=== PATIENT | male | born 1945 | race Caucasian/White ===

== ENCOUNTER 2017-01-12 11:57 | Inpatient (IN) | payer OTHER, MEDICARE ==
[~2017-01-12] VITALS: Ht 177.8 cm; Wt 80.9 kg
[2017-01-12] VITALS (8 sets, daily range): BP systolic 153–198; BP diastolic 73–87; PULSE 77–100; RESP 18–22; TEMP 97.7–97.8; O2SAT 90–96
--- NOTE | 2017-01-12 13:09 | RADRPT ---
EXAM DATE/TIME: 01/12/2017 12:44 [facility] COMPARISON: No previous studies available for comparison. INDICATIONS : Shortness of breath. MEDICAL HISTORY : Hypertension. Chronic obstructive pulmonary disease. SURGICAL HISTORY : None. ENCOUNTER: Initial ACUITY: 3 days PAIN SCORE: 0/10 LOCATION: Bilateral chest FINDINGS: A single view of the chest demonstrates diffuse interstitial densities bibasilar patchy alveolar infi ltrates. Confluent density right lower lobe and measures 3.1 cm. The cardiomediastinal contours are u nremarkable. Osseous structures are intact. CONCLUSION: Diffuse interstitial densities and bibasilar patchy alveolar infiltrates. Confluent density right low er lobe measures 3.1 cm. Recommend medical treatment and followup to resolution is serial radiographs . Saravanan Menjivar MD on January 12, 2017 at 13:06 Board Certified Radiologist. This report was verified electronically.
--- NOTE | 2017-01-12 13:11 | PD ---
HPI Chief Complaint: Respiratory Symptoms Time Seen by Provider: 12:28 Travel History International Travel<30 days: No Contact w/Intl Traveler<30days: No Traveled to known affect area: No History of Present Illness HPI 71-year-old male complains of shortness of breath. Patient has history of COPD. Patient states that he has increasing shortness breath with dyspnea on exertion and chest pain or past 10 days. Patient states that the shortness breath social with exertion. Patient states that he has pressure across anterior chest wall with exertion. Patient denies any palpitation diaphoresis nausea vomiting. Patient states that he has occasional dry cough. Patient states that he had low-grade fever, 99, a few days ago but not since then. Patient states that he has history of IA after a surgery in 2003. Patient has history of dyslipidemia. Patient stopped smoking 5 years ago. Patient denies history hypertension or diabetes. Patient went to the [place] [facility] today and referred to ED for evaluation. O2 saturation was in the 80s and 90s at room air. PFSH Past Medical History Anemia: Yes Anxiety: Yes High Cholesterol: Yes Gastrointestinal Disorders: Yes (COLON POLYP) GERD: Yes Genitourinary: Yes (BPH) Hypertension: Yes Musculoskeletal: Yes (RHEUMATOID ARTHRITIS) Reproductive: Yes (ERECTILE DYSFUNCTION) Respiratory: Yes (COPD) Influenza Vaccination: Yes Past Surgical History Eye Surgery: Yes Tonsillectomy: Yes Social History Alcohol Use: Yes (GLASS OF WINE DAILY) Tobacco Use: No Substance Use: Yes (MARIJUANA) Allergies-Medications (Allergen,Severity, Reaction): Coded Allergies: Penicillin (Verified Allergy, Severe, Cramping, 01/12/17) Pravachol (Verified Allergy, Intermediate, Cramping, 01/12/17) Septra (Verified Allergy, Intermediate, Rash, 01/12/17) Sulfa (Verified Allergy, Intermediate, Rash, 01/12/17) Zocor (Verified Allergy, Intermediate, 01/12/17) Review of Systems General / Constitutional: No: Fever Eyes: No: Visual changes HENT: No: Headaches Cardiovascular: Positive: Chest Pain or Discomfort Respiratory: Positive: Shortness of Breath Gastrointestinal: No: Abdominal Pain Genitourinary: No: Dysuria Musculoskeletal: No: Pain Skin: No Rash Neurologic: No: Weakness Psychiatric: No: Depression Endocrine: No: Polydipsia Hematologic/Lymphatic: No: Easy Bruising Physical Exam Narrative GENERAL: Well-nourished, well-developed patient. SKIN: Warm and dry. HEAD: Normocephalic. EYES: No scleral icterus. No injection or drainage. NECK: Supple, trachea midline. No JVD or lymphadenopathy. CARDIOVASCULAR: Regular rate and rhythm without murmurs, gallops, or rubs. RESPIRATORY: Breath sounds equal bilaterally. No accessory muscle use. GASTROINTESTINAL: Abdomen soft, non-tender, nondistended. MUSCULOSKELETAL: No cyanosis, or edema. BACK: Nontender without obvious deformity. No CVA tenderness. Neurologic exam normal. Data Data Last Documented VS Vital Signs Date Time Temp Pulse Resp B/P Pulse Ox O2 Delivery O2 Flow Rate FiO2 01/12/17 13:38 95 Nasal Cannula 2.00 01/12/17 12:49 18 01/12/17 12:02 77 01/12/17 11:59 97.7 198/78 Orders Electrocardiogram (01/12/17 12:39) Complete Blood Count With Diff (01/12/17 12:39) Comprehensive Metabolic Panel (01/12/17 12:39) Creatine Kinase (Cpk) (01/12/17 12:39) Troponin I (01/12/17 12:39) B-Type Natriuretic Peptide (01/12/17 12:39) Prothrombin Time / Inr (Pt) (01/12/17 12:39) Act Partial Throm Time (Ptt) (01/12/17 12:39) Thyroid Stimulating Hormone (01/12/17 12:39) Chest, Single Ap (01/12/17 12:39) Iv Access Insert/Monitor (01/12/17 12:39) Ecg Monitoring (01/12/17 12:39) Oximetry (01/12/17 12:39) Sodium Chloride 0.9% Flush (Ns Flush) (01/12/17 13:15) Methylprednisolone So Succ Inj (Solumedr (01/12/17 13:15) Albuterol-Ipratropium Neb (Duoneb Neb) (01/12/17 13:15) Labs Laboratory Tests Test 01/12/17 13:30 White Blood Count 10.4 TH/MM3 Red Blood Count 3.24 MIL/MM3 Hemoglobin 10.8 GM/DL Hematocrit 30.8 % Mean Corpuscular Volume 95.0 FL Mean Corpuscular Hemoglobin 33.4 PG Mean Corpuscular Hemoglobin 35.1 % Concent Red Cell Distribution Width 15.4 % Platelet Count 389 TH/MM3 Mean Platelet Volume 8.0 FL Neutrophils (%) (Auto) 71.1 % Lymphocytes (%) (Auto) 9.3 % Monocytes (%) (Auto) 12.7 % Eosinophils (%) (Auto) 6.4 % Basophils (%) (Auto) 0.5 % Neutrophils # (Auto) 7.4 TH/MM3 Lymphocytes # (Auto) 1.0 TH/MM3 Monocytes # (Auto) 1.3 TH/MM3 Eosinophils # (Auto) 0.7 TH/MM3 Basophils # (Auto) 0.1 TH/MM3 CBC Comment DIFF FINAL Differential Comment Prothrombin Time 11.2 SEC Prothromb Time International 1.0 RATIO Ratio Activated Partial 26.3 SEC Thromboplast Time Sodium Level 133 MEQ/L Potassium Level 4.2 MEQ/L Chloride Level 99 MEQ/L Carbon Dioxide Level 25.5 MEQ/L Anion Gap 9 MEQ/L Blood Urea Nitrogen 15 MG/DL Creatinine 1.11 MG/DL Estimat Glomerular Filtration 65 ML/MIN Rate Random Glucose 101 MG/DL Calcium Level 8.9 MG/DL Total Bilirubin 0.5 MG/DL Aspartate Amino Transf 23 U/L (AST/SGOT) Alanine Aminotransferase 27 U/L (ALT/SGPT) Alkaline Phosphatase 76 U/L Total Creatine Kinase 77 U/L Troponin I LESS THAN 0.02 NG/ML B-Type Natriuretic Peptide 18 PG/ML Total Protein 6.9 GM/DL Albumin 3.2 GM/DL Thyroid Stimulating Hormone 3.070 uIU/ML 3rd [facility] Medical Decision Making Medical Screen Exam Complete: Yes Emergency Medical Condition: Yes Interpretation(s) Last Impressions Chest X-Ray 01/12/17 1239 Signed Impressions: Service Date/Time: Thursday, January 12, 2017 12:44 - CONCLUSION: Diffuse interstitial densities and bibasilar patchy alveolar infiltrates. Confluent density right lower lobe measures 3.1 cm. Recommend medical treatment and followup to resolution is serial radiographs. Saravanan Menjivar MD 1548 PM. CBC WBC 10.4. Hemoglobin 10.8 hematocrit 30.8. 71 neutrophil. Sodium 133. BNP 18. Cardiac enzymes are normal. Differential Diagnosis Differential diagnosis including acute exacerbation COPD, bronchitis, pneumonia , PE, pneumothorax, angina, IA. Narrative Course 71-year-old male with chest discomfort and shortness of breath on exertion. History of COPD. Albuterol with Atrovent unit dose treatment times one. Solu- Medrol 125 mg IV. Levaquin 750 mg IV. Zithromax 500 mg IV. Diagnosis Primary Impression: Pneumonia Qualified Code: J18.9 - Pneumonia of both lower lobes due to infectious organism Additional Impression: COPD with acute exacerbation Erick Parks MD Jan 12, 2017 13:11
[2017-01-12] MEDS ORDERED: methylPREDNISolone SOD SUCC 125 MG/2 ML VIAL IVP ONE (13:15)
[2017-01-12] MEDS ORDERED: RESP: ALBUTEROL 2.5 MG/IPRATROPIUM 0.5 MG NEB (SCH) INH ONE (13:15)
[2017-01-12] MEDS ORDERED: SODIUM CHLORIDE 0.9% FLUSH 5 ML FLUSH IVF PRN (13:15)
[2017-01-12 13:56] LABS: AUTOMATED NEUTROPHIL # 7.4 TH/MM3 (1.8-7.7); BASOPHIL # 0.1 TH/MM3 (0-0.2); BASOPHIL % 0.5 % (0.0-2.0); EOSINOPHIL # 0.7 TH/MM3 (0-0.4); EOSINOPHIL % 6.4 % (0.0-4.0); HEMATOCRIT 30.8 % (39.0-51.0); HEMO FLAGS DIFF FINAL; LYMPH % 9.3 % (9.0-44.0); MEAN CORPUSCULAR HEMOGLOBIN 33.4 PG (27.0-34.0); MEAN CORPUSCULAR HGB CONC 35.1 % (32.0-36.0); MONO % 12.7 % (0.0-8.0); NEUT % 71.1 % (16.0-70.0); PLATELET COUNT 389 TH/MM3 (150-450); RED BLOOD COUNT 3.24 MIL/MM3 (4.50-5.90); RED CELL DISTRIBUTION WIDTH 15.4 % (11.6-17.2); WHITE BLOOD COUNT 10.4 TH/MM3 (4.0-11.0)
[2017-01-12 14:06] LABS: APTT (PATIENT) 26.3 SEC (24.3-30.1); PROTHROMBIN TIME - PATIENT 11.2 SEC (9.8-11.6)
[2017-01-12 14:11] LABS: ALT (GPT) 27 U/L (12-78); ANION GAP 9 MEQ/L (5-15); AST (GOT) 23 U/L (15-37); BICARBONATE 25.5 MEQ/L (21.0-32.0); BLOOD UREA NITROGEN 15 MG/DL (7-18); CHLORIDE 99 MEQ/L (98-107); GLOMERULAR FILTRATION RATE 65 ML/MIN (>89); POTASSIUM 4.2 MEQ/L (3.5-5.1); SODIUM (NA) 133 MEQ/L (136-145)
[2017-01-12 14:21] LABS: ALKALINE PHOSPHATASE 76 U/L (45-117); TOTAL BILIRUBIN ADULT 0.5 MG/DL (0.2-1.0)
[2017-01-12 14:23] LABS: CREATINE KINASE 77 U/L (39-308)
[2017-01-12] MEDS ORDERED: OMEP20TA PO (15:57)
[2017-01-12] MEDS ORDERED: VITA400T2 PO (15:57)
[2017-01-12] MEDS ORDERED: POLY99.0 EACH EYE (15:57)
[2017-01-12] MEDS ORDERED: ENBR25IN2 SQ (15:57)
[2017-01-12] MEDS ORDERED: [UNRECOGNIZED DRUG - CODE] TOP (15:57)
[2017-01-12] MEDS ORDERED: FOLI5CAP PO (15:57)
[2017-01-12] MEDS ORDERED: TERA2CAP3 PO (15:57)
[2017-01-12] MEDS ORDERED: ZOLP10TA3 PO (15:57)
[2017-01-12] MEDS ORDERED: VENTAER INH (15:57)
[2017-01-12] MEDS ORDERED: LISI-515 PO (15:57)
[2017-01-12] MEDS ORDERED: ASMA220A INH (15:57)
[2017-01-12] MEDS ORDERED: BUPR100T PO (15:57)
[2017-01-12] MEDS ORDERED: METH2.5T PO (15:57)
[2017-01-12] MEDS ORDERED: ATOR40TA16 PO (15:57)
[2017-01-12] MEDS ORDERED: MULT-135 PO (15:57)
[2017-01-12] MEDS ORDERED: CALC600T25 PO (15:57)
[2017-01-12] MEDS ORDERED: LEVOFLOXACIN 750 MG PREMIX INJ 150 ML IV ONE (16:00)
[2017-01-12] MEDS ORDERED: AZITHROMYCIN INJ 500 MG in SODIUM CHLOR 0.9% 250 ML INJ 250 ML IV ONE (16:00)
--- NOTE | 2017-01-12 17:01 | HHI.HP ---
[facility] Service Family Medicine Primary Care Physician [facility] Admission Diagnosis pneumonia. Acute exacerbation COPD. Diagnoses: International Travel<30 Days: No Contact w/Intl Traveler<30days: No Known Affected Area: No History of Present Illness Mr. Weber is a 71-year-old male with a past medical history of hypertension, COPD, rheumatoid arthritis, depression, achalasia, and BPH presents to the [place] ED with a chief complaint of shortness of breath of 5-10 days duration. The patient states that he is winded at baseline from exertion and activities such as making the bed, but the shortness of breath became worse such that he was short of breath if he moved a quilt, or bent over or carried items. The shortness of breath was also worse when he lies down flat. Notably, he uses 3 pillows to sleep at home and he sleeps with the head of his bed raised. He does not use oxygen at home. The shortness of breath became so bad today that he went to the [place] outpatient [facility] where he was found to be hypoxic in the 70s. He was consequently transferred to [place]. Associated symptoms include nonproductive cough, and an "electric pain"in the middle of his chest that radiates down each arm bilaterally to his wrists. He denies pressure-like or sharp chest pain. He also denies abdominal pain, nausea , vomiting, or constipation. He did mention that recently, his stool has appeared like firm bullets but are easy to pass. (Norma Leyva MD R1) Review of Systems Constitutional: COMPLAINS OF: Fever (subjective warmness), Dizziness (when coughing), DENIES: Diaphoretic episodes, Chills, Night Sweats Ears, nose, mouth, throat: COMPLAINS OF: Nasal discharge (sinus issues ) Respiratory: COMPLAINS OF: Cough, Shortness of breath, DENIES: Sputum production Cardiovascular: DENIES: Chest pain, Lower Extremity Edema Gastrointestinal: DENIES: Abdominal pain, Diarrhea, Nausea Genitourinary: COMPLAINS OF: Dysuria (saw the urologist this morning, PSA of 10 ) Integumentary: DENIES: Rash Neurologic: COMPLAINS OF: Headache (sinus headache) (Norma Leyva MD R1) Past Family Social History Past Medical History Rheumatoid arthritis diagnosed in 2004 Hypertension COPD Depression BPH Achalasia Past Surgical History Bowel surgery Tonsillectomy at 8 years of age Hemorrhoid banding (Norma Leyva MD R1) Allergies: Coded Allergies: Penicillin (Verified Allergy, Severe, Cramping, 01/12/17) Pravachol (Verified Allergy, Intermediate, Cramping, 01/12/17) Septra (Verified Allergy, Intermediate, Rash, 01/12/17) Sulfa (Verified Allergy, Intermediate, Rash, 01/12/17) Zocor (Verified Allergy, Intermediate, 01/12/17) Family History CAD - mom and dad - suddenly at 65, mom of CHF at age 90 Achalasia - dad COPD - mom DM - none Cancer - none Social History Lives alone with his cat Dawson Coffman - neighbor and dear friend who is his healthcare surrogate Smoking - smoked 1.5 to 2 ppd for 53 years Still uses E-cigarettes Alcohol - drinks red wine at night 2-3 glasses with dinner - never withdrawn Marijuana - smokes daily (Norma Leyav MD R1) Physical Exam Vital Signs Vital Signs Date Time Temp Pulse Resp B/P Pulse Ox O2 Delivery O2 Flow Rate FiO2 01/12/17 13:38 95 Nasal Cannula 2.00 01/12/17 12:49 18 96 Nasal Cannula 2 01/12/17 12:02 77 18 96 Nasal Cannula 2 01/12/17 11:59 97.7 77 18 198/78 90 Physical Exam GENERAL: This is a well-nourished, well-developed patient, in no apparent distress. SKIN: No rashes, ecchymoses or lesions. Cool and dry. HEAD: Atraumatic. Normocephalic. No temporal or scalp tenderness. EYES: Pupils equal round and reactive. Extraocular motions intact. No scleral icterus. No injection or drainage. ENT: Nose without bleeding, purulent drainage or septal hematoma. Throat without erythema, tonsillar hypertrophy or exudate. Uvula midline. Airway patent. NECK: Trachea midline. No JVD or lymphadenopathy. Supple, nontender, no meningeal signs. CARDIOVASCULAR: Regular rate and rhythm without murmurs, gallops, or rubs. RESPIRATORY: Bilateral chest. Coarse breath sounds in bibasilar lung shepherd GASTROINTESTINAL: Abdomen soft, non-tender, nondistended. No hepato-splenomegaly , or palpable masses. No guarding. NEUROLOGICAL: Awake and alert. Cranial nerves II through XII intact. Motor and sensory grossly within normal limits. Five out of 5 muscle strength in all muscle groups. Normal speech. Laboratory Laboratory Tests Test 01/12/17 13:30 White Blood Count 10.4 Red Blood Count 3.24 Hemoglobin 10.8 Hematocrit 30.8 Mean Corpuscular Volume 95.0 Mean Corpuscular Hemoglobin 33.4 Mean Corpuscular Hemoglobin 35.1 Concent Red Cell Distribution Width 15.4 Platelet Count 389 Mean Platelet Volume 8.0 Neutrophils (%) (Auto) 71.1 Lymphocytes (%) (Auto) 9.3 Monocytes (%) (Auto) 12.7 Eosinophils (%) (Auto) 6.4 Basophils (%) (Auto) 0.5 Neutrophils # (Auto) 7.4 Lymphocytes # (Auto) 1.0 Monocytes # (Auto) 1.3 Eosinophils # (Auto) 0.7 Basophils # (Auto) 0.1 CBC Comment DIFF FINAL Differential Comment Prothrombin Time 11.2 Prothromb Time International 1.0 Ratio Activated Partial 26.3 Thromboplast Time Sodium Level 133 Potassium Level 4.2 Chloride Level 99 Carbon Dioxide Level 25.5 Anion Gap 9 Blood Urea Nitrogen 15 Creatinine 1.11 Estimat Glomerular Filtration 65 Rate Random Glucose 101 Calcium Level 8.9 Total Bilirubin 0.5 Aspartate Amino Transf 23 (AST/SGOT) Alanine Aminotransferase 27 (ALT/SGPT) Alkaline Phosphatase 76 Total Creatine Kinase 77 Troponin I LESS THAN 0.02 B-Type Natriuretic Peptide 18 Total Protein 6.9 Albumin 3.2 Thyroid Stimulating Hormone 3.070 3rd Gen (Norma Leyva MD R1) Result Diagram: 01/12/17 1330 01/12/17 1330 Imaging Last Impressions Chest X-Ray 01/12/17 1239 Signed Impressions: Service Date/Time: Thursday, January 12, 2017 12:44 - CONCLUSION: Diffuse interstitial densities and bibasilar patchy alveolar infiltrates. Confluent density right lower lobe measures 3.1 cm. Recommend medical treatment and followup to resolution is serial radiographs. Saravanan Menjivar MD Course Patient received one dose of Levaquin IV, azithromycin IV, and IV Solu-Medrol in the ED. A CXR and EKG were performed. (Norma Leyva MD R1) Assessment and Plan Assessment and Plan 71-year-old male with a past medical history of COPD presents with shortness of breath of 5-10 days' duration that is concerning for either pneumonia, COPD exacerbation, CHF, and ACS. Chest x-ray performed in the ED shows interstitial densities on by basilar patchy alveolar infiltrates with a confluent density in the right lower lobe, placing pneumonia at the top of the differential diagnosis. The patient will be admitted for treatment with anti-biotics, breathing treatments, and oxygen administration. Code Status Full code Discussed Condition With Seen and discussed with Dr. Narayan, PGY 2. Will discuss with Dr. Ramos (Norma Leyva MD R1) Attending Attestation The patient has been seen and examined. The chart and all resident notes have been reviewed. I agree that inpatient care is appropriate and that a two midnight stay is expected for the reasons documented in the resident history and physical. I have discussed this with the resident and certify the resident s order for inpatient admission. (Fatuma Ramos MD) Problem List: (1) Pneumonia Status: Acute Plan: -ACS rule out with troponin less than 0.02 and normal EKG - pneumonia more likely diagnosis -Chest x-ray shows diffuse interstitial densities in bibasilar patchy alveolar infiltrates. There is also a confluent density in the right lower lobe that measures 3.1 cm -Levaquin 750 mg [IV] every 24 hours, received [1] doses - DAY [1], started on 01/12/17 -Azithromycin 500 mg by mouth every 24 hours to start on 01/13, received one dose of azithromycin 500 mg IV today 01/12 - Day [1] -Patient received 125 mg IV push methylprednisolone in the ED -We will continue prednisone 40 mg by mouth daily on 01/13 -Legionella and pneumococcal antigen pending (2) COPD with acute exacerbation Status: Acute Plan: -Patient reports about [id number] history of smoking -Considering patient's shortness of breath, COPD exacerbation is also high on the differential -Albuterol nebulizer 2.5 mg every 4 hours scheduled for shortness of breath to alternate with DuoNebs 1 ampule every 4 hours -See plan above for antibiotics (3) Rheumatoid arthritis Status: Chronic Plan: -Patient normally takes methotrexate every 7 days on Tuesdays -Did not take his dose today -Also takes Enbrel injection every 7 days on Sundays, last dose was on Wednesday -Holding for now (4) Anemia Status: Chronic Plan: -H&H on admission 10.8/30.8 -Will continue to monitor during admission (5) Hypertension Status: Chronic Plan: -BP elevated to 198/78 on admission -We'll continue home lisinopril 20 mg daily by mouth -Vasotec 1.25 mg IV every 6 hours when necessary (6) BPH (benign prostatic hyperplasia) Status: Chronic Plan: -Will continue patient's home Terazosin 2mg by mouth at bedtime (7) Depression Status: Chronic Plan: -Continue home Bupropion 100 mg by mouth twice a day (8) Insomnia Status: Chronic Plan: -Continue home zolpidem 10 mg by mouth at bedtime PRN (9) FEN/DVT PPX/GI PPX Status: Acute Plan: Fluids: Oral fluids only; patient does not meet sepsis criteria, is not dehydrated on exam, has been eating and drinking normally Electrolytes: Will monitor and replace as needed Nutrition: Regular adult diet DVT Prophylaxis: Bilateral SCDs GI Prophylaxis: Protonix 40 mg by mouth daily AM Labs: CBC, CMP in the a.m. (Norma Leyva MD R1) Physician Certification 2 Midnight Certification Type: Admission for Inpatient Services Order for Inpatient Services The services are ordered in accordance with Medicare regulations or non- Medicare payer requirements, as applicable. In the case of services not specified as inpatient-only, they are appropriately provided as inpatient services in accordance with the 2-midnight benchmark. Estimated LOS (days): 3 days is the estimated time the patient will need to remain in the hospital, assuming treatment plan goals are met and no additional complications. Post-Hospital Plan: Home (Norma Leyva MD R1) Problem Qualifiers (1) Pneumonia: Qualified Code: J18.9 - Pneumonia of both lower lobes due to infectious organism (2) Anemia: Qualified Code: D64.9 - Anemia, unspecified type Norma Leyva MD R1 Jan 12, 2017 17:01 Fatuma Ramos MD Jan 13, 2017 15:26
[2017-01-12 17:52] LABS: BLOOD, URINE NEG (NEG); COMMENT (UR) CULT NOT INDICATED; CULTURE IF INDICATED CULT NOT INDICATED; GLUCOSE,URINE NEG (NEG); KETONE, URINE NEG (NEG); NITRITE,URINE NEG (NEG); URINE COLOR YELLOW (YELLW/STRAW)
[2017-01-12] MEDS ORDERED: ENALAPRILAT 1.25 MG/ML VIAL IV PRN (18:00)
[2017-01-12 18:23] LABS: BLOOD GAS BASE EXCESS -1.3 mmol/L (-2-2); BLOOD GAS CARBOXYHEMOGLOBIN 2.4 % (0-4); BLOOD GAS HCO3 22 mmol/L (22-26); BLOOD GAS METHEMOGLOBIN 1.8 % (0-2); BLOOD GAS O2 HGB SATURATION 90 % (90-100); BLOOD GAS OXYGEN CONTENT 14.4 Vol % (12.0-20.0); BLOOD GAS PCO2 30 mmHg (38-42); BLOOD GAS PO2 66 mmHG (61-120); BLOOD GAS TOTAL HGB 11.3 G/DL (12.0-16.0); CRITICAL VALUE NO; DRAW SITE LT BRACHIAL; LITER FLOW 3 L/M; NUMBER OF ARTERIAL PUNCTURES 1; OXYGEN DEVICE NASAL CANNULA; STAT YES; TEMP CORR TO 98.6; ULNAR PULSE Y
[2017-01-12] MEDS: RESP: ALBUTEROL 2.5 MG/3 ML NEB (SCH) INH (19:11)
[2017-01-12] MEDS: HEPARIN SODIUM - SQ 10,000 UNITS/ML VIAL SQ SCH (21:00)
[2017-01-12] MEDS ORDERED: buPROPion HCL 100 MG SUSTAINED RELEASE TAB PO SCH (21:00)
[2017-01-12] MEDS: TERAZOSIN HCL 1 MG CAP PO SCH (22:09)
[2017-01-12] MEDS: CHOLECALCIFEROL (VIT D3) 400 UNIT TAB PO SCH (22:09)
[2017-01-12] MEDS: ATORVASTATIN 40 MG TAB PO SCH (22:09)
[2017-01-12] MEDS: CALCIUM CARBONATE 1.25 GM (CA 500 MG) TAB PO SCH (22:09)
[2017-01-12] MEDS: ZOLPIDEM TARTRATE 10 MG TAB PO PRN (22:29)
[2017-01-12] MEDS: RESP: ALBUTEROL 2.5 MG/IPRATROPIUM 0.5 MG NEB (SCH) NEB (23:48)
[2017-01-13] VITALS (10 sets, daily range): BP systolic 111–154; BP diastolic 64–78; PULSE 74–101; RESP 18–22; TEMP 97.5–98.8; O2SAT 92–96
[2017-01-13] MEDS: RESP: ALBUTEROL 2.5 MG/3 ML NEB (SCH) INH ×2 (03:19→11:19)
[2017-01-13] MEDS: RESP: ALBUTEROL 2.5 MG/IPRATROPIUM 0.5 MG NEB (SCH) NEB (07:32)
[2017-01-13 08:13] LABS: AUTOMATED NEUTROPHIL # 8.1 TH/MM3 (1.8-7.7); BASOPHIL % 0.2 % (0.0-2.0); EOSINOPHIL % 0.4 % (0.0-4.0); HEMATOCRIT 29.4 % (39.0-51.0); HEMO FLAGS DIFF FINAL; LYMPH % 10.8 % (9.0-44.0); LYMPHOCYTE # 1.2 TH/MM3 (1.0-4.8); MEAN CELL VOLUME 93.3 FL (80.0-100.0); MEAN CORPUSCULAR HEMOGLOBIN 31.7 PG (27.0-34.0); MONO % 12.5 % (0.0-8.0); NEUT % 76.1 % (16.0-70.0); PLATELET COUNT 363 TH/MM3 (150-450); RED BLOOD COUNT 3.16 MIL/MM3 (4.50-5.90); RED CELL DISTRIBUTION WIDTH 15.1 % (11.6-17.2); WHITE BLOOD COUNT 10.7 TH/MM3 (4.0-11.0)
[2017-01-13 08:35] LABS: BICARBONATE 22.9 MEQ/L (21.0-32.0); MAGNESIUM 1.8 MG/DL (1.5-2.5); POTASSIUM 4.1 MEQ/L (3.5-5.1)
[2017-01-13] MEDS: buPROPion HCL 100 MG SUSTAINED RELEASE TAB PO SCH ×2 (08:58→21:18)
[2017-01-13] MEDS: FOLIC ACID 1 MG TAB PO SCH (08:58)
[2017-01-13] MEDS: predniSONE 20 MG TAB PO SCH (08:59)
[2017-01-13] MEDS: LISINOPRIL 20 MG TAB PO SCH (08:59)
[2017-01-13] MEDS: CHOLECALCIFEROL (VIT D3) 400 UNIT TAB PO SCH ×2 (08:59→21:18)
[2017-01-13] MEDS: NICOTINE 21 MG/24 HR PATCH TD SCH (08:59)
[2017-01-13] MEDS: CALCIUM CARBONATE 1.25 GM (CA 500 MG) TAB PO SCH ×2 (08:59→21:21)
[2017-01-13] MEDS ORDERED: SYRINGE/BAG 1 EA PO SCH (09:00)
[2017-01-13] MEDS: HEPARIN SODIUM - SQ 10,000 UNITS/ML VIAL SQ SCH (09:00)
[2017-01-13] MEDS: REMOVE OLD PATCH TD SCH (09:00)
[2017-01-13] MEDS ORDERED: AZITHROMYCIN 250 MG TAB PO SCH (09:00)
[2017-01-13] MEDS ORDERED: METHOTREXATE 2.5 MG TAB PO SCH (10:00)
[2017-01-13] MEDS ORDERED: IOHEXOL 350 MG/ML 10 ML VIAL (for RAD DIAG) IV ONE (10:11)
--- NOTE | 2017-01-13 10:40 | RADRPT ---
EXAM DATE/TIME: 01/13/2017 10:09 [facility] COMPARISON: No previous studies available for comparison. INDICATIONS: Short of breath. Abnormal chest x-ray. Evaluate for mass. IV CONTRAST: 65 cc Omnipaque 350 (iohexol) IV RADIATION DOSE: 5.61 CTDIvol (mGy) MEDICAL HISTORY: Hypertension. Chronic obstructive pulmonary disease. Gastroesophageal reflux disease. SURGICAL HISTORY: None. ENCOUNTER: Initial ACUITY: 1 week PAIN SCALE: 0/10 LOCATION: Right chest TECHNIQUE: Volumetric scanning of the chest was performed. Using automated exposure control and adjustment of t he mA and/or kV according to patient size, radiation dose was kept as low as reasonably achievable to obtain optimal diagnostic quality images. FINDINGS: Extensive emphysematous changes are seen in both lungs. In the right base there is a poorly circumsc ribed 4 cm mass with a central cavitation that is suspicious for primary neoplasm. This would be amenable to per cutaneous biopsy. Pneumothorax is moderate in this patient with significant emphysematous changes. There is no pleural effusion. There is no axillary adenopathy. There is abnormal mediastinal adenop athy with pre-carinal lymph nodes present measuring 1.4 cm. The largest node measures 2.1 cm. There is hilar adenopathy on the right as well. Review of bone windows reveals only degenerative changes. CONCLUSION: 1. Extensive emphysematous changes with a mass in the right lower lobe. 2. Abnormal hilar adenopathy. 3. Abnormal mediastinal adenopathy. Elder Isaacs MD FACR on January 13, 2017 at 10:17 Board Certified Radiologist. This report was verified electronically.
[2017-01-13] MEDS ORDERED: RESP: ALBUTEROL 2.5 MG/IPRATROPIUM 0.5 MG NEB (PRN) NEB (12:00)
--- NOTE | 2017-01-13 14:16 | HHI.FPPN ---
Subjective Remarks No acute events overnight. Afebrile, vital signs stable. Patient continues to require 3 L nasal cannula. He states he feels his breathing is much improved from yesterday. (Charito Aquino MD R3) Objective Vitals Vital Signs Date Time Temp Pulse Resp B/P Pulse Ox O2 Delivery O2 Flow Rate FiO2 01/13/17 12:07 98.1 96 22 132/70 93 01/13/17 08:05 98.2 87 22 154/78 92 01/13/17 07:34 93 Nasal Cannula 3.00 01/13/17 04:00 97.5 93 18 120/70 93 01/13/17 00:00 98.2 101 20 111/64 93 01/12/17 20:46 Nasal Cannula 3.00 01/12/17 20:28 100 01/12/17 20:00 97.8 100 20 153/73 94 01/12/17 19:37 96 22 160/81 95 Nasal Cannula 3 01/12/17 19:12 96 Nasal Cannula 3.00 I/O 01/12/17 01/12/17 01/12/17 01/13/17 01/13/17 01/13/17 07:00 15:00 23:00 07:00 15:00 23:00 Intake Total 240 ml 240 ml Balance 240 ml 240 ml Intake Oral 240 ml 240 ml # Voids 2 2 # Bowel Movements 1 1 (Charito Aquino MD R3) Result Diagram: 01/13/17 0744 01/13/17 0744 Imaging Last Impressions Chest X-Ray 01/12/17 1239 Signed Impressions: Service Date/Time: Thursday, January 12, 2017 12:44 - CONCLUSION: Diffuse interstitial densities and bibasilar patchy alveolar infiltrates. Confluent density right lower lobe measures 3.1 cm. Recommend medical treatment and followup to resolution is serial radiographs. Saravanan Menjivar MD Objective Remarks Gen.: No acute distress Head: Normocephalic. Atraumatic. EENT: Pupils equal round and reactive to light. Nose without drainage. Airway intact. Throat without injection. Cardiovascular: Regular rate and rhythm. No murmurs, rubs or gallops. Respiratory: Coarse breath sounds bilaterally. No wheezes or rhonchi. Abdomen: Soft, nontender, nondistended. No peritoneal signs. Musculoskeletal: No gross deformities. No edema. Skin: No obvious rashes or erythema. Neuro: Sensory and motor grossly intact. Cranial nerves II through XII grossly intact. Psych: Appropriate mood and affect (Charito Aquino MD R3) A/P Assessment and Plan 71-year-old male with a past medical history of COPD presents with 510 days shortness of breath and basilar patchy alveolar infiltrates on chest x-ray. Discharge Planning Pending clinical improvement (Charito Aquino MD R3) Attending Attestation Patient seen and examined with the resident team. Case reviewed and discussed Agree with plan of care as discussed with me and documented in the resident note. (Fatuma Ramos MD) Problem List: (1) Pneumonia Status: Acute Plan: Chest x-ray shows diffuse interstitial densities and bibasilar patchy alveolar infiltrates. Legionella and strep pneumo antigens negative. Flu negative. Blood cultures no growth 1 day. Levaquin 750 mg every 24 hours started on 01/12/17 (2) COPD with acute exacerbation Status: Acute Plan: Patient with known COPD and a [id number] history of smoking. Patient given 125 mg Solu-Medrol in the ED. Continue prednisone 40 mg by mouth daily Albuterol and DuoNeb's (3) Rheumatoid arthritis Status: Chronic Plan: Patient on methotrexate (every Wednesday) and Enbrel (every Wednesday). Continue home medications (4) Anemia Status: Chronic Plan: H&H on admission 10.8/30.8 -Will continue to monitor (5) Hypertension Status: Chronic Plan: BP elevated to 198/78 on admission -Continue home lisinopril 20 mg daily by mouth -Vasotec 1.25 mg IV every 6 hours when necessary (6) BPH (benign prostatic hyperplasia) Status: Chronic Plan: -Will continue patient's home Terazosin 2mg by mouth at bedtime (7) Depression Status: Chronic Plan: -Continue home Bupropion 100 mg by mouth twice a day (8) Insomnia Status: Chronic Plan: -Continue home zolpidem 10 mg by mouth at bedtime PRN (9) FEN/DVT PPX/GI PPX Status: Acute Plan: Fluids: Hep-Lock IV Electrolytes: Will monitor and replace as needed Nutrition: Regular adult diet DVT Prophylaxis: Bilateral SCDs, heparin 5000 units every 8 hours GI Prophylaxis: Protonix 40 mg by mouth daily (Charito Aquino MD R3) Problem Qualifiers (1) Pneumonia: Qualified Code: J18.9 - Pneumonia of both lower lobes due to infectious organism (2) Anemia: Qualified Code: D64.9 - Anemia, unspecified type Charito Aquino MD R3 Jan 13, 2017 14:16 Fatuma Ramos MD Jan 13, 2017 15:28
--- NOTE | 2017-01-13 15:28 | HHI.FPPN ---
Subjective Subjective Patient seen and examined with the resident team. Case reviewed with the resident team Please refer to resident H&P for further details regarding HPI, ROS, PMH, SurgHx , FH and SocHx In summary, patient is a 71yoM who presented [place] the ED from the [place] [facility] with oxygen noted to be in the 70s. He reports a 5-10 day history of worsening shortness of breath with intermittent 'electric' chest pain. He is seen this am reporting improvement, chest pain resolved. [facility] Objective Objective Laboratory Tests - Abnormals Test 01/12/17 01/13/17 18:10 07:44 Arterial Blood pH 7.47 Arterial Blood Partial 30 mmHg Pressure CO2 Blood Gas Hemoglobin 11.3 G/DL Red Blood Count 3.16 MIL/MM3 Hemoglobin 10.0 GM/DL Hematocrit 29.4 % Neutrophils (%) (Auto) 76.1 % Monocytes (%) (Auto) 12.5 % Neutrophils # (Auto) 8.1 TH/MM3 Monocytes # (Auto) 1.3 TH/MM3 Sodium Level 133 MEQ/L Estimat Glomerular Filtration 68 ML/MIN Rate Vital Signs 01/12/17 01/12/17 01/12/17 01/12/17 19:12 19:37 20:00 20:28 Temp 97.8 Pulse 96 100 100 Resp 20 B/P 160/81 153/73 Pulse Ox 96 95 94 O2 Delivery Nasal Cannula Nasal Cannula O2 Flow Rate 3.00 3 01/12/17 01/13/17 01/13/17 01/13/17 20:46 00:00 04:00 07:34 Temp 98.2 97.5 Pulse 101 93 Resp 20 18 B/P 111/64 120/70 Pulse Ox 93 93 93 O2 Delivery Nasal Cannula Nasal Cannula O2 Flow Rate 3.00 3.00 01/13/17 01/13/17 08:05 12:07 Temp 98.2 98.1 Pulse 87 96 Resp B/P 154/78 132/70 Pulse Ox 92 93 INTAKE & OUTPUT 01/13/17 07:00 Intake Total 480 ml Balance 480 ml Physical exam GENERAL: Elderly male, NAD, resting in bed SKIN: Warm and dry. No lesions, rashes HEAD: Normocephalic. AT EYES: No scleral icterus. No injection or drainage. ENT: OP clear. NC in place. NECK: Supple, trachea midline. No JVD or lymphadenopathy. CARDIOVASCULAR: Regular rate and rhythm without murmurs, gallops, or rubs. RESPIRATORY: Breath sounds with mild R basilar crackles. No accessory muscle use. GASTROINTESTINAL: Abdomen soft, non-tender, nondistended. MUSCULOSKELETAL: No cyanosis, or edema. NO calf tenderness BACK: Nontender without obvious deformity. No CVA tenderness. NEURO: Awake and alert. Normal speech. CN grossly intact. Assessment Assessment 71yoM admitted with: CAP COPD in acute exacerbation Rheumatoid arthritis diagnosed in 2004 Hypertension Depression BPH PLAN PLAN CT Chest to evaluate 3cm lesion noted on CXR Empiric antibiotic therapy with Levaquin Prednisone Supplemental oxygen as needed Breathing treatments Counseled regarding tobacco cessation Resume home meds as appropriate Legionella, strep, flu antigen Sputum culture Patient seen and examined with the resident team. Case reviewed and discussed Agree with plan of care as discussed with me and documented in the resident note. Fatuma Ramos MD Jan 13, 2017 15:28
[2017-01-13] MEDS: LEVOFLOXACIN 750 MG PREMIX INJ 150 ML IV SCH (16:52)
[2017-01-13] MEDS: TERAZOSIN HCL 1 MG CAP PO SCH (21:18)
[2017-01-13] MEDS: ATORVASTATIN 40 MG TAB PO SCH (21:18)
--- NOTE | 2017-01-13 21:26 | HHI.FPPN ---
Addendum to progress note ADDENDUM Reason for addendum: Additonal documentation Additional information I met with the patient earlier in the day to inform him about the results of the CT scan of his chest which is concerning for primary lung cancer. The radiologist recommended percutaneous biopsy of the cavitary mass, which the patient declined. The patient states that he does not want to go ahead with any plans without first discussing with his primary physician Dr. French at the [place]. I informed him that we have consulted oncology who should see him tomorrow. We will be happy to discuss the radiology findings with his primary care physician tomorrow. (Norma Leyva MD R1) Norma Leyva MD R1 Jan 13, 2017 21:26 Fatuma Ramos MD Jan 13, 2017 21:41
--- NOTE | 2017-01-13 22:31 | EKG ---
Date Performed: 01/12/2017 Time Performed: 13:56:03 PTAGE: 71 years EKG: Sinus rhythm NORMAL ECG NO PREVIOUS TRACING DOCTOR: Hali Rod Interpretating Date/Time 01/13/2017 22:29:31
[2017-01-13] MEDS: ZOLPIDEM TARTRATE 10 MG TAB PO PRN (22:51)
[2017-01-14] VITALS (12 sets, daily range): BP systolic 121–149; BP diastolic 58–87; PULSE 72–90; RESP 16–22; TEMP 98–98.7; O2SAT 91–96
[2017-01-14 08:27] LABS: AUTOMATED NEUTROPHIL # 8.5 TH/MM3 (1.8-7.7); BASOPHIL % 0.3 % (0.0-2.0); EOSINOPHIL # 0.3 TH/MM3 (0-0.4); EOSINOPHIL % 2.8 % (0.0-4.0); HEMATOCRIT 29.9 % (39.0-51.0); HEMO FLAGS DIFF FINAL; LYMPH % 11.2 % (9.0-44.0); LYMPHOCYTE # 1.3 TH/MM3 (1.0-4.8); MEAN CELL VOLUME 94.2 FL (80.0-100.0); MEAN CORPUSCULAR HEMOGLOBIN 31.4 PG (27.0-34.0); MEAN CORPUSCULAR HGB CONC 33.4 % (32.0-36.0); MONO % 12.4 % (0.0-8.0); NEUT % 73.3 % (16.0-70.0); PLATELET COUNT 386 TH/MM3 (150-450); RED BLOOD COUNT 3.17 MIL/MM3 (4.50-5.90); RED CELL DISTRIBUTION WIDTH 14.9 % (11.6-17.2); WHITE BLOOD COUNT 11.6 TH/MM3 (4.0-11.0)
[2017-01-14] MEDS: REMOVE OLD PATCH TD SCH (09:00)
[2017-01-14] MEDS: NICOTINE 21 MG/24 HR PATCH TD SCH (09:00)
[2017-01-14 09:04] LABS: BICARBONATE 25.3 MEQ/L (21.0-32.0)
[2017-01-14] MEDS: predniSONE 20 MG TAB PO SCH (09:23)
[2017-01-14] MEDS: CALCIUM CARBONATE 1.25 GM (CA 500 MG) TAB PO SCH ×2 (09:23→22:17)
[2017-01-14] MEDS: LISINOPRIL 20 MG TAB PO SCH (09:24)
[2017-01-14] MEDS: buPROPion HCL 100 MG SUSTAINED RELEASE TAB PO SCH ×2 (09:24→22:17)
[2017-01-14] MEDS: CHOLECALCIFEROL (VIT D3) 400 UNIT TAB PO SCH ×2 (09:24→22:18)
[2017-01-14] MEDS: FOLIC ACID 1 MG TAB PO SCH (09:24)
[2017-01-14] MEDS ORDERED: LIDOCAINE 1%/EPINEPHrine 1:100,000 SOLN 20 ML VIAL ONE (09:41)
[2017-01-14] MEDS ORDERED: fentaNYL CITRATE 250 MCG/5 ML AMP ONE (10:02)
[2017-01-14] MEDS ORDERED: MIDAZOLAM HCL 5 MG/5 ML VIAL ONE (10:02)
--- NOTE | 2017-01-14 10:19 | HHI.FPPN ---
Addendum to progress note ADDENDUM Reason for addendum: Additonal documentation Additional information Residents went to check on Mr. Weber this morning, and he was already gone to radiology for the percutaneous biopsy. His nurse stated that he changed his mind overnight about not having the biopsy. (Norma Leyva MD R1) Norma Leyva MD R1 Jan 14, 2017 10:19 Fatuma Ramos MD Jan 15, 2017 16:02
--- NOTE | 2017-01-14 11:06 | RADRPT ---
EXAM DATE/TIME: 01/14/2017 10:06 [facility] COMPARISON: CT THORAX W CONTRAST, January 13, 2017, 10:09. INDICATIONS : Right lung mass SEDATION TIME: 30 minutes BIOPSY SITE: Right lung MEDICATION(S): 1.) 1 mg midazolam (Versed) IV 2.) 100 mcg fentanyl (Sublimaze) IV DEVICE(S): 1.) 18 Fr Benson blunt needle 2.) 20 gauge Temno core biopsy needle MEDICAL HISTORY : Chronic obstructive pulmonary disease. SURGICAL HISTORY : None. ENCOUNTER: Initial ACUITY: 1 day PAIN SCORE: 0/10 LOCATION: Right chest A total of four core specimen(s) were obtained and sent to the laboratory for pathologic evaluation. PROCEDURE: 1. CT guided lung biopsy. 2. Conscious sedation with continuous EKG and oximetry monitoring. 3. EKG and oximetry remained stable throughout the procedure. Prior to the procedure informed consent was obtained. The patient's prior chest CT was reviewed. The site was prepped in a sterile fashion. Full sterile technique was used, including cap, mask, bailee rile gloves and gown and a large sterile sheet. Hand hygiene and 2% chlorhexidine and/or betadine/al cohol prep was utilized per protocol for cutaneous antisepsis. The skin and subcutaneous tissues wer e infiltrated with local anesthetic solution. With CT guidance the cavitary mass in the right lower lobe was localized. Biopsy was performed using the prescribed needle as above. Adequate hemostasis was obtained with compression at the puncture si te. Follow-up CT scan reveals minimal pleural air but no other significant complication. Conscious sedation was performed with the prescribed dosages and duration as above. The patient frances ated the procedure well and there were no complications. EKG and oximetry remained stable throughout the procedure. The patient was sent to Radiology Outpatient Unit in stable condition. CONCLUSION: Uncomplicated CT guided biopsy of the cavitary mass in the right lower lobe. There is a trace amount of pleural air but no significant pneumothorax is present. Reuben Mcghee MD on January 14, 2017 at 11:03 Board Certified Radiologist. This report was verified electronically.
[2017-01-14] MEDS ORDERED: oxyCODONE/ACETAMINOPHEN 5 MG/325 MG TAB PO PRN (11:45)
--- NOTE | 2017-01-14 12:47 | RADRPT ---
EXAM DATE/TIME: 01/14/2017 12:08 [facility] COMPARISON: CT THORAX W CONTRAST, January 13, 2017, 10:09. CT NEEDLE BIOPSY LUNG, RIGHT, January 14, 2017, 10: 06. CHEST SINGLE AP, January 12, 2017, 12:44. INDICATIONS : Post right lung lung biopsy. MEDICAL HISTORY : None. SURGICAL HISTORY : None. ENCOUNTER: Initial ACUITY: 1 day PAIN SCORE: 2/10 LOCATION: Right chest FINDINGS: Portable upright expiratory view of the chest demonstrates no definite pneumothorax. There is chronic interstitial opacities bilaterally. There is a stable large bulla at the left lung apex. CONCLUSION: No pneumothorax is appreciated following recent right lung lesion biopsy. Chronic interstitial opacit ies remain present bilaterally. Reuben Mcghee MD on January 14, 2017 at 12:44 Board Certified Radiologist. This report was verified electronically.
--- NOTE | 2017-01-14 14:59 | RADRPT ---
EXAM DATE/TIME: 01/14/2017 14:05 [facility] COMPARISON: CHEST EXPIRATION ONLY, January 14, 2017, 12:08. INDICATIONS : Post right lung biopsy. MEDICAL HISTORY : None. SURGICAL HISTORY : None. ENCOUNTER: Subsequent ACUITY: 1 day PAIN SCORE: 0/10 LOCATION: Right chest FINDINGS: Portable upright view of the chest demonstrates no evidence of pneumothorax. Increasing patchy areas of consolidation in the right mid and left lower lung. Both hemidiaphragms are obliterated. The he art is normal size. CONCLUSION: No evidence of pneumothorax. Increasing bilateral infiltrates. Hever Herrera MD on January 14, 2017 at 14:56 Board Certified Radiologist. This report was verified electronically.
--- NOTE | 2017-01-14 16:23 | HHI.FPPN ---
Subjective Remarks Patient is doing well this morning, he has no complaints. He tolerated the percutaneous biopsy. He is breathing more comfortably. (EkoNorma MD R1) Objective Vitals Vital Signs Date Time Temp Pulse Resp B/P Pulse Ox O2 Delivery O2 Flow Rate FiO2 01/14/17 14:03 75 18 148/87 94 01/14/17 13:03 76 16 149/82 93 01/14/17 12:33 82 18 137/66 92 01/14/17 12:03 72 18 121/61 91 01/14/17 11:33 81 16 122/58 93 01/14/17 11:03 81 18 124/82 92 01/14/17 10:48 98.7 76 18 126/58 94 01/14/17 08:06 98.4 79 22 149/74 92 01/14/17 08:00 96 Nasal Cannula 3.00 01/14/17 04:02 98.2 76 18 137/64 91 01/13/17 23:07 98.8 77 18 135/78 93 01/13/17 22:12 96 01/13/17 21:15 Nasal Cannula 3.00 01/13/17 19:32 98.3 95 18 137/74 96 I/O 01/13/17 01/13/17 01/13/17 01/14/17 01/14/17 01/14/17 07:00 15:00 23:00 07:00 15:00 23:00 Intake Total 240 ml 360 ml 240 ml 2 ml Balance 240 ml 360 ml 240 ml 2 ml Intake Oral 240 ml 360 ml 240 ml 0 ml IV Total 2 ml # Voids 2 6 6 2 # Bowel Movements 1 3 1 0 (EkoNorma MD R1) Result Diagram: 01/14/1772601/14/17726 Objective Remarks Gen.: No acute distress Head: Normocephalic. Atraumatic. EENT: Pupils equal round and reactive to light. Nose without drainage. Airway intact. Throat without injection. Cardiovascular: Regular rate and rhythm. No murmurs, rubs or gallops. Respiratory: Coarse breath sounds bilaterally. No wheezes or rhonchi. Abdomen: Soft, nontender, nondistended. No peritoneal signs. Musculoskeletal: No gross deformities. No edema. Skin: No obvious rashes or erythema. Neuro: Sensory and motor grossly intact. Cranial nerves II through XII grossly intact. Psych: Appropriate mood and affect (Norma Leyva MD R1) A/P Assessment and Plan 71-year-old male with a past medical history of COPD presents with 510 days shortness of breath and basilar patchy alveolar infiltrates on chest x-ray. Discharge Planning Pending clinical improvement (Norma Leyva MD R1) Problem List: (1) Pneumonia Status: Acute Plan: Chest x-ray shows diffuse interstitial densities and bibasilar patchy alveolar infiltrates. Legionella and strep pneumo antigens negative. Flu negative. Blood cultures no growth 2 days. Levaquin 750 mg every 24 hours started on 01/12/17 (2) Primary lung cancer Status: Chronic Plan: -3.1 cm R lower lung base mass confirmed on CT chest suspicious for primary lung neoplasm with hilar adenopathy -Percutaneous biopsy performed on 01/14 -Hematology-Oncology consulted (3) COPD with acute exacerbation Status: Acute Plan: Patient with known COPD and a [id number] history of smoking. Patient given 125 mg Solu-Medrol in the ED. Continue prednisone 40 mg by mouth daily Albuterol and DuoNeb's (4) Rheumatoid arthritis Status: Chronic Plan: Patient on methotrexate (every Wednesday) and Enbrel (every Wednesday). Continue home medications (5) Anemia Status: Chronic Plan: H&H on admission 10.8/30.8 -Will continue to monitor (6) Hypertension Status: Chronic Plan: BP elevated to 198/78 on admission -Continue home lisinopril 20 mg daily by mouth -Vasotec 1.25 mg IV every 6 hours when necessary (7) BPH (benign prostatic hyperplasia) Status: Chronic Plan: -Will continue patient's home Terazosin 2mg by mouth at bedtime (8) Depression Status: Chronic Plan: -Continue home Bupropion 100 mg by mouth twice a day (9) Insomnia Status: Chronic Plan: -Continue home zolpidem 10 mg by mouth at bedtime PRN (10) FEN/DVT PPX/GI PPX Status: Acute Plan: Fluids: Hep-Lock IV Electrolytes: Will monitor and replace as needed Nutrition: Regular adult diet DVT Prophylaxis: Bilateral SCDs GI Prophylaxis: Protonix 40 mg by mouth daily (Norma Leyva MD R1) Problem Qualifiers (1) Pneumonia: Qualified Code: J18.9 - Pneumonia of both lower lobes due to infectious organism (2) Primary lung cancer: Qualified Code: C34.91 - Primary lung cancer, right (3) Anemia: Qualified Code: D64.9 - Anemia, unspecified type Norma Leyva MD R1 Jan 14, 2017 16:23 Fatuma Ramos MD Jan 15, 2017 16:01
[2017-01-14] MEDS: LEVOFLOXACIN 750 MG PREMIX INJ 150 ML IV SCH (17:00)
--- NOTE | 2017-01-14 19:14 | MB ---
cc: [facility], HAMLET PARHAM MD DATE OF CONSULTATION: 01/14/2017. HEMATOLOGY/ONCOLOGY CONSULTATION NOTE REQUESTING PHYSICIAN: Consult requested by Dr. Ramos. REASON FOR CONSULTATION: Patient found to have a right-sided lung mass associated with mediastinal (pretracheal lymph nodes). Findings concerning for primary malignancy of the lung. CHIEF COMPLAINT: Mr. Weber reports having had a 10-day history of progressive difficulty breathing. He also reports having had a cough producing scant phlegm. HISTORY OF PRESENT ILLNESS: Mr. Weber is a very pleasant 71-year-old male. The patient has an extensive past history of tobaccoism (he quit approximately 15 years ago, but has a 100 pack/year history of smoking prior to quitting). The patient reported the above-noted symptoms of increasing difficulty breathing and cough to his primary care physicians at the [facility]. On initial intake at the doctor's office, he was noted to have an O2 saturation of approximately 70% on room air. He was transferred to [facility] for further workup and management. After the patient was given appropriate oxygen supplementation, he underwent imaging studies including a CT scan of the thorax performed on 01/13/2017. The CT images revealed extensive emphysematous changes in bilateral lungs associated with a poorly circumscribed 4 cm mass involving the right base of the lung. He in addition to this had a precarinal / pretracheal lymph node measuring approximately 2.1 cm. Over the course of this hospitalization, Mr. Weber been treated with corticosteroids as well as empiric antibiotics for management of what appears to be a clinical COPD exacerbation. He also underwent a CT-guided biopsy of the right-sided lung mass, this was done earlier today. Pathologic findings are pending at this time. The oncology service has been consulted to help coordinate further staging and outpatient management. PAST MEDICAL HISTORY: 1. Extensive personal history of tobaccoism. 2. COPD. 3. Rheumatoid arthritis (presently on treatment with methotrexate 10 milligrams once a week and Enbrel injections). 4. Hypertension. 5. Benign prostate hypertrophy. 6. Achalasia. PAST SURGICAL HISTORY: 1. Laparotomy with partial resection of the large bowel following colonic perforation. 2. Hemorrhoid banding. 3. Appendectomy. 4. Tonsillectomy. FAMILY HISTORY: The mom at the age of 90 of congestive heart failure. The father at the age of 65 of coronary artery disease. The patient denies any knowledge of oncologic diagnoses in the family. SOCIAL HISTORY: Mr. Weber is a of the [employer] . 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 He reports being a heavy smoker having smoked 100 pack/years before he quit about 15 years ago. He also reports regular alcohol consumption. He has no children of his own. He was briefly at one time (his marriage lasted less than six months) in the [place] area. He reports having good friends and support network. HEALTH MAINTENANCE: The patient is up-to-date with colonoscopies, his most recent colonoscopy was less than five years ago. ALLERGIES: 1. "ALL TYPE OF CILLINS", I.E., PENICILLINS. 2. SULFA DRUGS. CURRENT INPATIENT MEDICATIONS: 1. Levofloxacin 750 IV daily. 2. DuoNeb one amp every 4 hours as needed. 3. Atorvastatin 40 milligrams p.o. at bedtime. 4. Wellbutrin 200 milligrams p.o. twice a day. 5. Os-Alden 500 milligrams p.o. twice a day. 6. Vitamin D3 400 units p.o. twice a day. 7. Folic acid 1 milligrams once daily. 8. Lisinopril 20 milligrams once daily. 9. Methotrexate 10 milligrams p.o. q. 7 days. 10. Nicotine patch 21 milligram patch daily. 11. Oxycodone / acetaminophen 5/325 one tablet every 4 hours as needed for pain. 12. Prednisone 40 milligrams p.o. daily. 13. Hytrin 2 milligrams p.o. at bedtime. 14. Ambien 10 milligrams p.o. at bedtime as needed for insomnia. REVIEW OF SYSTEMS: A thirteen point review of systems was obtained and the following are the pertinent positives: CONSTITUTIONAL: The patient reports fatigue, denies fevers, chills, night sweats, decreased appetite or weight loss. HEAD, EYES, EARS, NOSE, THROAT: Denies headaches, blurry vision, difficulty swallowing or soreness in the throat. RESPIRATORY: Reports difficulty breathing with cough producing scant phlegm, denies pleuritic chest pain or hemoptysis. CARDIOVASCULAR: Denies angina-like chest pain, PND, orthopnea and reports having had palpitations. Denies lower extremity edema. GI: Denies nausea, vomiting, diarrhea hematochezia, melena, abdominal distension or yellow jaundice. : Denies dysuria, hematuria, urinary incontinence. 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 PHYSICAL EXAMINATION: VITAL SIGNS: Temperature 98.2 degrees Fahrenheit, heart rate 79 beats PER minute, blood pressure of 143/85, respiratory rate 22, O2 sats are 95% on 2 liters nasal cannula. GENERAL PHYSICAL APPEARANCE: Mr. Weber is an elderly male. He is lying in bed. He appears to be in no acute distress. He has a pleasant disposition. HEAD, EYES, EARS, NOSE, THROAT: Head is atraumatic and normocephalic. Conjunctivae are mildly pale. The sclerae are anicteric. Extraocular muscles intact. Pupils equal, round and reactive to light and accommodation. ORAL EXAM: No pharyngeal erythema. NECK EXAM: No palpable cervical or supraclavicular lymphadenopathy. RESPIRATORY EXAM: He has good and equal air movements bilaterally. He has prolonged expiratory phase. CARDIOVASCULAR EXAM: Regular rate and rhythm. S1, S2 without any obvious murmurs, rubs or gallops. ABDOMINAL EXAM: Thin belly. Soft, nontender and nondistended. No palpable organ enlargement. LOWER EXTREMITIES: No pretibial edema. No calf tenderness. 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 LABORATORY FINDINGS: Blood work dated 01/14/2017: WBC count 11.6, hemoglobin 10 gm/dL, hematocrit 30%, platelet count 386,000, absolute neutrophil count 8.5. Chemistries: Sodium 133, potassium 4, chloride 99, bicarbonate 25.3, BUN 20, creatinine 1.15, eGFR 62, calcium 8.7, albumin 3.2. TSH 3.07. IMAGING STUDIES: CT scan of the thorax: Extensive emphysematous changes with a mass in the right lower lobe. Abnormal hilar and abnormal mediastinal lymphadenopathy measuring up to 2.1 cm. ASSESSMENT: Mr. Weber is a very pleasant 71-year-old male with an extensive past history of tobaccoism, COPD and hypertension. He also has an autoimmune disorder, i.e., rheumatoid arthritis. He presented to the hospital with complaints of difficulty breathing associated with a cough. Imaging studies revealed no definite explanation for the acute worsening of his respiratory symptoms. However, he was found to have a right lower lobe lung mass associated with mediastinal and hilar lymphadenopathy. Overall the lungs had impressive chronic parenchymal changes most consistent with advanced COPD / pulmonary fibrosis. He did undergo a CT-guided biopsy earlier today but pathologic findings are pending at this time. RECOMMENDATIONS: 1. Right lower lobe lung mass associated with hilar and mediastinal lymphadenopathy: Await results of CT-guided biopsy. Based on the radiographic appearance, I suspect the most likely underlying diagnosis will be a primary lung malignancy. Based on the extensive mediastinal lymphadenopathy and the appearance of his lung parenchyma, I suspect this man has severely impaired pulmonary function and severely impaired pulmonary functional reserve. Once a diagnosis is established / confirmed, he will require systemic staging, and I think the most appropriate staging modality given the extensive mediastinal and hilar lymph node involvement would be a PET/CT scan. Additionally, he will require outpatient pulmonary function testing with DLCO followed by coordination of care for appropriate management. It is hard to see this man being a candidate for surgical resection. He likely will be a candidate for concurrent chemoradiotherapy should a diagnosis of lung carcinoma be established. I will attempt to schedule followup with myself in my outpatient center upon discharge; however, the logistics of follow up may be difficult as the patient primarily has VA insurance and lives in [place]. I am not certain if my center contracts with the VA for VA outpatient services. MD VALDO Cuevas/JAVI /6:11 PM /6:43 PM
[2017-01-14] MEDS: ZOLPIDEM TARTRATE 10 MG TAB PO PRN (22:17)
[2017-01-14] MEDS: TERAZOSIN HCL 1 MG CAP PO SCH (22:18)
[2017-01-14] MEDS: ATORVASTATIN 40 MG TAB PO SCH (22:18)
[2017-01-15 04:39] VITALS: BP 136/70; PULSE 78; RESP 18; TEMP 98.1; O2SAT 98
--- NOTE | 2017-01-15 06:31 | RADRPT ---
EXAM DATE/TIME: 01/15/2017 06:20 [facility] COMPARISON: CHEST SINGLE AP, January 12, 2017, 12:44. INDICATIONS : Shortness of breath. MEDICAL HISTORY : Hypertension. Chronic obstructive pulmonary disease. SURGICAL HISTORY : None. ENCOUNTER: Subsequent ACUITY: 4 - 6 days PAIN SCORE: Non-responsive. LOCATION: Bilateral chest FINDINGS: There are coarse interstitial markings seen bilaterally diffusely. There is a compression deformity a t L1. Heart size normal. Aorta is tortuous. Cavitary mass in the right lower lobe is less conspicuous on the current study. CONCLUSION: Course interstitial markings and upper lobe emphysematous changes again seen. Right lower lobe pleura l based masslike opacity is less conspicuous today. Daron Lowry MD on January 15, 2017 at 6:29 Board Certified Radiologist. This report was verified electronically.
[2017-01-15 07:51] LABS: AUTOMATED NEUTROPHIL # 7.2 TH/MM3 (1.8-7.7); BASOPHIL % 0.4 % (0.0-2.0); EOSINOPHIL # 0.4 TH/MM3 (0-0.4); EOSINOPHIL % 3.9 % (0.0-4.0); HEMATOCRIT 32.2 % (39.0-51.0); HEMO FLAGS DIFF FINAL; LYMPH % 12.6 % (9.0-44.0); LYMPHOCYTE # 1.3 TH/MM3 (1.0-4.8); MEAN CELL VOLUME 94.1 FL (80.0-100.0); MEAN CORPUSCULAR HEMOGLOBIN 31.9 PG (27.0-34.0); MEAN CORPUSCULAR HGB CONC 33.9 % (32.0-36.0); MONO % 10.9 % (0.0-8.0); NEUT % 72.2 % (16.0-70.0); PLATELET COUNT 398 TH/MM3 (150-450); RED BLOOD COUNT 3.42 MIL/MM3 (4.50-5.90); RED CELL DISTRIBUTION WIDTH 15.3 % (11.6-17.2)
[2017-01-15 08:00] VITALS: BP 113/61; PULSE 81; RESP 20; TEMP 97.9; O2SAT 93
[2017-01-15 08:05] LABS: BICARBONATE 27.1 MEQ/L (21.0-32.0)
[2017-01-15] MEDS: NICOTINE 21 MG/24 HR PATCH TD SCH (08:25)
[2017-01-15] MEDS: CHOLECALCIFEROL (VIT D3) 400 UNIT TAB PO SCH (08:25)
[2017-01-15] MEDS: LISINOPRIL 20 MG TAB PO SCH (08:25)
[2017-01-15] MEDS: buPROPion HCL 100 MG SUSTAINED RELEASE TAB PO SCH (08:25)
[2017-01-15] MEDS: predniSONE 20 MG TAB PO SCH (08:25)
[2017-01-15] MEDS: CALCIUM CARBONATE 1.25 GM (CA 500 MG) TAB PO SCH (08:25)
[2017-01-15] MEDS: FOLIC ACID 1 MG TAB PO SCH (08:25)
[2017-01-15] MEDS: REMOVE OLD PATCH TD SCH (09:00)
--- NOTE | 2017-01-15 09:40 | HHI.FPPN ---
Subjective Remarks Patient is feeling "good." Denies pain, fever, chills, shortness of breath. Denies cough, however is producing sputum. (Marlon Narayan MD R2) Objective Vitals Vital Signs Date Time Temp Pulse Resp B/P Pulse Ox O2 Delivery O2 Flow Rate FiO2 01/15/17 04:39 98.1 78 18 136/70 98 01/14/17 21:21 84 01/14/17 20:45 Nasal Cannula 3.00 01/14/17 20:00 98.0 90 18 126/75 96 01/14/17 16:08 98.2 79 22 143/85 95 01/14/17 14:03 75 18 148/87 94 01/14/17 13:03 76 16 149/82 93 01/14/17 12:33 82 18 137/66 92 01/14/17 12:03 72 18 121/61 91 01/14/17 11:33 81 16 122/58 93 01/14/17 11:03 81 18 124/82 92 01/14/17 10:48 98.7 76 18 126/58 94 I/O 01/14/17 01/14/17 01/14/17 01/15/17 01/15/17 01/15/17 07:00 15:00 23:00 07:00 15:00 23:00 Intake Total 2 ml 120 ml 800 ml 600 ml Output Total 400 ml 850 ml 1100 ml Balance 2 ml -280 ml -50 ml -500 ml Intake Oral 0 ml 120 ml 800 ml 600 ml IV Total 2 ml Output Urine Total 400 ml 850 ml 1100 ml # Voids 2 # Bowel Movements 0 0 1 0 (Marlon Narayan MD R2) Result Diagram: 01/15/17 0552 01/15/17 0552 Imaging Last Impressions Chest X-Ray 01/15/17 0600 Signed Impressions: Service Date/Time: Sunday, January 15, 2017 06:20 - CONCLUSION: Course interstitial markings and upper lobe emphysematous changes again seen. Right lower lobe pleural based masslike opacity is less conspicuous today. Daron Lowry MD Lung Biopsy CT 01/14/17 0000 Signed Impressions: Service Date/Time: December 10:06 - CONCLUSION: Uncomplicated CT guided biopsy of the cavitary mass in the right lower lobe. There is a trace amount of pleural air but no significant pneumothorax is present. Reuben Mcghee MD Chest CT 01/13/17 0000 Signed Impressions: Service Date/Time: Friday, January 13, 2017 10:09 - CONCLUSION: 1. Extensive emphysematous changes with a mass in the right lower lobe. 2. Abnormal hilar adenopathy. 3. Abnormal mediastinal adenopathy. Elder Isaacs MD FACR Objective Remarks Gen.: No acute distress Head: Normocephalic. Atraumatic. EENT: Pupils equal round and reactive to light. Nose without drainage. Airway intact. Throat without injection. Cardiovascular: Regular rate and rhythm. No murmurs, rubs or gallops. Respiratory: Coarse breath sounds bilaterally. No wheezes or rhonchi. Abdomen: Soft, nontender, nondistended. No peritoneal signs. Musculoskeletal: No gross deformities. No edema. Skin: No obvious rashes or erythema. Neuro: Sensory and motor grossly intact. Cranial nerves II through XII grossly intact. Psych: Appropriate mood and affect (Marlon Narayan MD R2) A/P Assessment and Plan 71-year-old male with a past medical history of COPD presents with 510 days shortness of breath. Currently being treated for pneumonia. Oncology has been consulted for a 4 cm mass that is likely primary lung cancer. Awaiting biopsy results as discussed below. Discharge Planning Pending clinical improvement and oncology workup. Pending biopsy results, patient may need outpatient PFTs with DLCO per oncology (Marlon Narayan MD R2) Attending Attestation Patient seen and examined. Case reviewed and discussed Agree with plan of care as discussed with me and documented in the resident note. (Fatuma Ramos MD) Problem List: (1) Pneumonia Status: Acute Plan: Chest x-ray shows diffuse interstitial densities and bibasilar patchy alveolar infiltrates. Legionella and strep pneumo antigens negative. Flu negative. Blood cultures no growth 2 days. Levaquin 750 mg every 24 hours started on 01/12/17 (2) Lung mass Status: Acute Plan: -3.1 cm R lower lung base mass confirmed on CT chest suspicious for primary lung neoplasm with hilar adenopathy -Percutaneous biopsy performed on 01/14 -Oncology consulted -If mass is cancer as expected, patient will need staging per oncology. He would also need outpatient PFTs. (3) COPD with acute exacerbation Status: Acute Plan: Patient with known COPD and a [id number] history of smoking. Patient given 125 mg Solu-Medrol in the ED. Continue prednisone 40 mg by mouth daily Albuterol and DuoNeb's (4) Rheumatoid arthritis Status: Chronic Plan: Patient on methotrexate (every Wednesday) and Enbrel (every Wednesday). Continue home medications (5) Anemia Status: Chronic Plan: Stable -Will continue to monitor (6) Hypertension Status: Chronic Plan: Currently controlled. -Continue home lisinopril 20 mg daily by mouth -Vasotec 1.25 mg IV every 6 hours when necessary (7) BPH (benign prostatic hyperplasia) Status: Chronic Plan: -Will continue patient's home Terazosin 2mg by mouth at bedtime (8) Depression Status: Chronic Plan: -Continue home Bupropion 100 mg by mouth twice a day (9) Insomnia Status: Chronic Plan: -Continue home zolpidem 10 mg by mouth at bedtime PRN (10) FEN/DVT PPX/GI PPX Status: Acute Plan: Fluids: Hep-Lock IV Electrolytes: Will monitor and replace as needed Nutrition: Regular adult diet DVT Prophylaxis: Bilateral SCDs GI Prophylaxis: Protonix 40 mg by mouth daily (Marlon Narayan MD R2) Problem Qualifiers (1) Pneumonia: Qualified Code: J18.9 - Pneumonia of both lower lobes due to infectious organism (2) Anemia: Qualified Code: D64.9 - Anemia, unspecified type Marlon Narayan MD R2 Jan 15, 2017 09:40 Fatuma Ramos MD Jan 15, 2017 16:01
[2017-01-15 11:41] VITALS: O2SAT 96
[2017-01-15 12:00] VITALS: BP 146/78; PULSE 84; RESP 20; TEMP 97.8; O2SAT 92
[2017-01-15] MEDS ORDERED: OXYGENTANK NAS.CANULA ×2 (12:59→15:09)
--- NOTE | 2017-01-15 14:16 | HHI.DCPOC ---
Discharge Care Plan Diagnosis: (1) Lung mass (2) Primary lung cancer (3) Pneumonia (4) Rheumatoid arthritis (5) Insomnia (6) Anemia (7) Depression (8) Hypertension (9) BPH (benign prostatic hyperplasia) (10) COPD with acute exacerbation (11) Hypoxemia Goals to Promote Your Health * To prevent worsening of your condition and complications * To maintain your health at the optimal level Directions to Meet Your Goals Take your medications as prescribed Follow your dietary instruction Follow activity as directed Keep your appointments as scheduled Take your immunizations and boosters as scheduled If your symptoms worsen call your PCP, if no PCP go to Urgent Care Center or Emergency Room Smoking is Dangerous to Your Health. Avoid second hand smoke Call the 24-hour hour crisis hotline for domestic abuse at Norma Leyva MD R1 Jan 15, 2017 14:16 Fatuma Ramos MD Jan 15, 2017 16:02
[2017-01-15] MEDS ORDERED: LEVO750T33 PO (14:24)
[2017-01-15] MEDS: LEVOFLOXACIN 750 MG PREMIX INJ 150 ML IV SCH (16:08)
[2017-01-15] MEDS ORDERED: PRED20 PO (16:13)
--- NOTE | 2017-01-23 16:03 | HHI.DS ---
Discharge Summary Admission Date Jan 12, 2017 at 16:25 Admitting Diagnosis pneumonia. Acute exacerbation COPD. (1) Pneumonia Diagnosis: Principal (2) Lung mass Diagnosis: Principal (3) COPD with acute exacerbation Diagnosis: Principal (4) Rheumatoid arthritis Diagnosis: Secondary (5) Anemia Diagnosis: Secondary Plan: Stable -Will continue to monitor (6) Hypertension Diagnosis: Secondary (7) BPH (benign prostatic hyperplasia) Diagnosis: Secondary (8) Depression Diagnosis: Secondary (9) Insomnia Diagnosis: Secondary Brief History Mr. Weber is a 71-year-old male with a past medical history of hypertension, COPD, rheumatoid arthritis, depression, achalasia, and BPH presents to the [place] ED with a chief complaint of shortness of breath of 5-10 days duration. The patient states that he is winded at baseline from exertion and activities such as making the bed, but the shortness of breath became worse such that he was short of breath if he moved a quilt, or bent over or carried items. The shortness of breath was also worse when he lies down flat. Notably, he uses 3 pillows to sleep at home and he sleeps with the head of his bed raised. He does not use oxygen at home. The shortness of breath became so bad today that he went to the [place] [facility] where he was found to be hypoxic in the 70s. He was consequently transferred to [place]. Associated symptoms include nonproductive cough, and an "electric pain"in the middle of his chest that radiates down each arm bilaterally to his wrists. He denies pressure-like or sharp chest pain. He also denies abdominal pain, nausea , vomiting, or constipation. He did mention that recently, his stool has appeared like firm bullets but are easy to pass. PE at Discharge Gen.: No acute distress Head: Normocephalic. Atraumatic. EENT: Pupils equal round and reactive to light. Nose without drainage. Airway intact. Throat without injection. Cardiovascular: Regular rate and rhythm. No murmurs, rubs or gallops. Respiratory: Coarse breath sounds bilaterally. No wheezes or rhonchi. Abdomen: Soft, nontender, nondistended. No peritoneal signs. Musculoskeletal: No gross deformities. No edema. Skin: No obvious rashes or erythema. Neuro: Sensory and motor grossly intact. Cranial nerves II through XII grossly intact. Psych: Appropriate mood and affect Hospital Course Mr. Weber was admitted for pneumonia and COPD exacerbation. Chest x-ray showed diffuse interstitial densities in bibasilar patchy alveolar infiltrates, as well as a confluent density in the right lower lobe that measured 3.[address] chest was performed which was concerning for primary lung cancer. Consequently, a biopsy of the right lower lobe mass was performed and oncology was consulted, who agreed that the patient may need to follow up with a [place] oncologist, but will attempt to arrange follow-up for him after discharge. The patient continued to improve in terms of shortness of breath during admission, however, he failed a respiratory oxygen walk test and was discharged home with portable oxygen. He will follow up with his [place] primary care physician after discharge. Pt Condition on Discharge: Stable Discharge Disposition: Discharge Home Discharge Instructions DIET: Follow Instructions for: As Tolerated, No Restrictions Activities you can perform: Weight Bearing as [place] Follow up Referrals: Appointment for Follow Up - 1 Week Oncology - 1 Week with Deshaun Cardenas MD New Medications: Levofloxacin (Levofloxacin) 750 Mg Tab 750 MG PO DAILY Infection #2 Ref 0 TAB Oxygen tank (Oxygen tank) 1 Ea Tank 2 LITER RUBI.CANCulinary Agents CONTINUOUS Oxygen Concentrator Portable Gaseous 2 L/min via Nasal Cannula Continuous For 99 months HYPOXEMIA PREVENTION #2 CYLINDER Prednisone (Prednisone) 20 Mg Tab 40 MG PO DAILY Days 2 TAB Continued Medications: Albuterol 18 GM Inh (Ventolin Hfa 18 GM Inh) 90 Mcg/Act Aer 2 PUFF INH Q4-6H PRN SHORTNESS OF BREATH #1 Ref 0 INHALER Atorvastatin (Atorvastatin) 40 Mg Tab 40 MG PO HS Cholesterol Management #30 Ref 0 TAB Bupropion HCl ER 12 HR (Bupropion HCl ER 12 HR) 100 Mg Tab 200 MG PO BID TAB Calcium Carbonate (Calcium) 600 Mg Tab 600 MG PO BID Cholecalciferol (Vitamin D) 400 Unit Tab 400 UNITS PO BID Etanercept Inj Kit (Enbrel Inj Kit) 25 Mg Kit 50 MG SQ Q7D #4 KIT Folic Acid (Folic Acid) 5 Mg Cap 1 MG PO DAILY Nutritional Supplement Ref 0 CAP Lisinopril (Lisinopril) 20 Mg Tab 20 MG PO DAILY #30 Ref 0 TAB Methotrexate (Methotrexate) 2.5 Mg Tab 10 MG PO Q7D Ref 0 TAB Mometasone 120 Act Inh (Asmanex 120 Act Twisthaler) 220 Mcg/Act Inh 1 PUFF INH HS Asthma Management #1 Ref 0 INHALER Multiple Vitamin (Multi Vitamin) 1 Tab Tab 1 TAB PO DAILY TAB Omeprazole (Omeprazole) 20 Mg Tab 20 MG PO BID #30 Ref 0 TAB Polyvinyl Alcohol Opth Drops (Artificial Tears Opth Drops) 1.4% Soln 1-2 DROP EACH EYE QID PRN DRY EYE Ref 0 BOTTLE Selenium Sulfide (Eql Medicated Dandruff) 1 % Sha 2.5 % TOP EVERY OTHER DAY PRN DRY SKIN Terazosin (Terazosin) 2 Mg Cap 2 MG PO HS #30 Ref 0 CAP Zolpidem (Zolpidem) 10 Mg Tab 10 MG PO HS PRN INSOMNIA Ref 0 TAB Norma Leyva MD R1 Jan 23, 2017 16:03
== END 2017-01-15 18:37 | disposition home or self-care (01) | DRG 180 ==
LOC: NEPA 11:57 → NEDA 16:25 → N04B 20:03
PROVIDERS: ADMIT Family Medicine; ATTEND Family Medicine
PROC: 0BBF3ZX Excision of Right Lower Lung Lobe, Percutaneous Approach, Diagnostic (ICD-10-PCS; principal; 2017-01-14)
DX: C34.91 Malignant neoplasm of unspecified part of right bronchus or lung (principal); J18.9 Pneumonia, unspecified organism; J84.10 Pulmonary fibrosis, unspecified; J44.0 Chronic obstructive pulmonary disease with (acute) lower respiratory infection; D64.9 Anemia, unspecified; M06.9 Rheumatoid arthritis, unspecified; J44.1 Chronic obstructive pulmonary disease with (acute) exacerbation; I10 Essential (primary) hypertension; E78.5 Hyperlipidemia, unspecified; I25.2 Old myocardial infarction; K21.9 Gastro-esophageal reflux disease without esophagitis; N40.0 Benign prostatic hyperplasia without lower urinary tract symptoms; R09.02 Hypoxemia; Z87.891 Personal history of nicotine dependence; Z86.010 Personal history of colon polyps; G47.00 Insomnia, unspecified; F32.9 Major depressive disorder, single episode, unspecified
CPT/HCPCS: 32405; 36600; 71010; 71020; 71260; 77012; 80048; 80053; 81001; 82550; 82805; 83735; 83880; 84100; 84443; 84484; 85025; 85610; 85730; 87015; 87040; 87070; 87102; 87116; 87176; 87205; 87206; 87449; 87804; 88305; 88341; 88342; 93005; 94150; 94620; 94640; 94664; 96374; J0456; J1956; J2250; J2930; J3010; J7050; J7512; J7613; J8610; Q9967